=== PATIENT | male | born 1980 | race Asian ===

== ENCOUNTER 2018-02-13 12:51 | Emergency (ER) | payer OTHER ==
[~2018-02-13] VITALS: Ht 175.3 cm; Wt 145.2 kg
[2018-02-13 13:02] VITALS: TEMP 98
[2018-02-13 13:23] LABS: PLATELET COUNT 220 K/uL (142-355)
[2018-02-13 13:30] LABS: POTASSIUM 3.6 mmol/L (3.6-5.2)
[2018-02-13 15:00] VITALS: BP 124/76
== END 2018-02-13 15:10 | disposition home or self-care (01) ==
LOC: ED 12:51
DX: R07.89 Other chest pain (principal)
CPT/HCPCS: 36415; 80053; 82150; 82550; 82553; 83690; 85027; 85651; 93005; 96360; 99284; J7120

== ENCOUNTER 2018-02-15 10:35 | Outpatient (CLI) | payer OTHER | END 2018-02-15 19:22 | disposition home or self-care (01) | LOC: RAD 10:35 | DX: M54.2 Cervicalgia (principal) ==

== ENCOUNTER 2019-02-03 10:45 | Outpatient (CLI) | payer OTHER ==
[2019-02-03 11:51] LABS: PLATELET COUNT 225 K/uL (142-355)
== END 2019-02-03 23:29 | disposition home or self-care (01) ==
LOC: LAB 10:45
PROVIDERS: Internal Medicine
DX: I10 Essential (primary) hypertension (principal); G47.33 Obstructive sleep apnea (adult) (pediatric); E78.00 Pure hypercholesterolemia, unspecified
CPT/HCPCS: 80053; 80061; 81000; 84439; 84443; 85027

== ENCOUNTER 2019-11-01 12:03 | Emergency (ER) | payer OTHER ==
[~2019-11-01] VITALS: Ht 175.3 cm; Wt 149.7 kg
[2019-11-01 12:24] VITALS: TEMP 98.7
[2019-11-01 13:43] LABS: PLATELET COUNT 177 K/uL (142-355)
[2019-11-01 14:21] LABS: POTASSIUM 3.5 mmol/L (3.6-5.2)
[2019-11-01 16:00] VITALS: BP 121/68
== END 2019-11-01 16:00 | disposition home or self-care (01) ==
LOC: ED 12:03
PROVIDERS: Family Medicine
DX: J06.9 Acute upper respiratory infection, unspecified (principal); R05 Cough; R06.09 Other forms of dyspnea; Z20.828 Contact with and (suspected) exposure to other viral communicable diseases
CPT/HCPCS: 36415; 80053; 82728; 83605; 85027; 85379; 87040; 87502; 87635; 87651; 99283; U0003

== ENCOUNTER 2021-03-13 06:06 | Outpatient (CLI) | payer OTHER ==
[2021-03-13 06:58] LABS: PLATELET COUNT 229 K/uL (142-355)
== END 2021-03-13 20:08 | disposition home or self-care (01) ==
LOC: LABW 06:06
PROVIDERS: ATTEND Internal Medicine
DX: I10 Essential (primary) hypertension (principal); E66.9 Obesity, unspecified
CPT/HCPCS: 36415; 80053; 80061; 81000; 84439; 84443; 85027

== ENCOUNTER 2021-10-24 12:42 | Outpatient (CLI) | payer OTHER ==
[2021-10-24 12:51] LABS: PLATELET COUNT 215 K/uL (142-355)
[2021-10-24 13:51] LABS: POTASSIUM 4.3 mmol/L (3.6-5.2)
== END 2021-10-24 19:07 | disposition home or self-care (01) ==
LOC: LAB 12:42
PROVIDERS: ATTEND Internal Medicine
DX: I10 Essential (primary) hypertension (principal); E66.9 Obesity, unspecified
CPT/HCPCS: 80053; 80061; 84439; 84443; 85027